=== PATIENT | female | born 1990 | race American Indian/Alaskan Native ===

== ENCOUNTER 2019-01-19 06:07 | Emergency (ER) | payer MEDICAID ==
[2019-01-19] MEDS ORDERED: ZOFRAN ONE (06:38)
[2019-01-19] MEDS ORDERED: ZOFRAN IV ONE (06:41)
[2019-01-19 06:51] LABS: Basophils % (Auto) 0.4 % (0.0-1.8); Eosinophils # (Auto) 0.1 K/mm3 (0.0-0.4); Eosinophils % (Auto) 0.9 % (0.0-4.3); Hematocrit 37.9 % (30.3-42.9); Hemoglobin 13.2 gm/dl (10.1-14.3); Lymphocytes # (Auto) 1.6 K/mm3 (1.2-5.4); Lymphocytes % (Auto) 22.6 % (13.4-35.0); Mean Corpuscular HGB Conc 35 % (30-34); Mean Corpuscular Volume 90 fl (79-97); Monocytes # (Auto) 0.5 K/mm3 (0.0-0.8); Monocytes % (Auto) 7.8 % (0.0-7.3); Platelet Count 273 K/mm3 (140-440); Red Blood Count 4.19 M/mm3 (3.65-5.03); Red Cell Distribution Width 13.6 % (13.2-15.2)
[2019-01-19 07:12] LABS: Alanine Aminotransferase 18 units/L (7-56); Albumin 4.7 g/dL (3.9-5); BUN/Creatinine Ratio 12; Blood Urea Nitrogen 11 mg/dL (7-17); Calcium 9.8 mg/dL (8.4-10.2); Hemolysis Index 7
[2019-01-19] MEDS ORDERED: NACL 0.9% 1000 ML 1,000 ML IV ONE (07:28)
[2019-01-19] MEDS ORDERED: K-DUR PO ONE (07:29)
--- NOTE | 2019-01-19 07:31 | Emergency Department Report ---
ED General Adult HPI - General Chief complaint: Nausea/Vomiting/Diarrhea Stated complaint: VOMITTING Time Seen by Provider: 01/19/19 07:08 Source: patient Mode of arrival: Ambulatory Limitations: No Limitations - History of Present Illness Initial comments: 28 YO HIV POS PT WITH N/V/D FOR 1 DAY. ON ANTIVIRAL. NO FEVER. NO CHILLS. NO ABD PAIN. JUST GOT HER control SHOT. Does not recall eating anything bad. Family not ill. No CVA tenderness. No vag discharge or bleeding. No back pain. pmh HIV on antivirals -: Gradual, days(s) Severity scale (0 -10): 10 Consistency: constant Improves with: none Worsens with: eating Associated Symptoms: nausea/vomiting Treatments Prior to Arrival: none - Related Data Previous Rx's Medication Instructions Recorded Last Taken Type Ondansetron [Zofran Odt] 4 mg PO Q8HR PRN #10 tab.rapdis 01/19/19 Unknown Rx Potassium Chloride [K-Dur] 20 meq PO BID #4 tab 01/19/19 Unknown Rx Allergies Allergy/AdvReac Type Severity Reaction Status Date / Time No Known Allergies Allergy Verified 01/19/19 06:37 ED Review of Systems ROS: Stated complaint: VOMITTING Other details as noted in HPI Comment: All other systems reviewed and negative Constitutional: denies: chills, fever Eyes: denies: eye pain ENT: denies: throat pain Respiratory: denies: cough Cardiovascular: denies: palpitations Endocrine: denies: flushing Gastrointestinal: as per HPI, abdominal pain, nausea, vomiting, diarrhea Genitourinary: denies: urgency Musculoskeletal: denies: back pain Skin: denies: rash Neurological: weakness. denies: headache Psychiatric: denies: depression Hematological/Lymphatic: denies: easy bleeding ED Past Medical Hx - Past Medical History Previous Medical History?: Yes Hx HIV: Yes - Surgical History Past Surgical History?: No - Family History Family history: no significant - Social History Smoking Status: Current Every Day Smoker - Medications Home Medications: Home Medications Medication Instructions Recorded Confirmed Last Taken Type Ondansetron [Zofran Odt] 4 mg PO Q8HR PRN #10 tab.rapdis 01/19/19 Unknown Rx Potassium Chloride [K-Dur] 20 meq PO BID #4 tab 01/19/19 Unknown Rx ED Physical Exam - General Limitations: No Limitations General appearance: alert, in no apparent distress - Head Head exam: Present: atraumatic, normocephalic - Eye Eye exam: Present: normal appearance, PERRL, EOMI - ENT ENT exam: Present: mucous membranes dry - Neck Neck exam: Present: normal inspection - Respiratory Respiratory exam: Present: normal lung sounds bilaterally - Cardiovascular Cardiovascular Exam: Present: regular rate, tachycardia - GI/Abdominal GI/Abdominal exam: Present: soft, normal bowel sounds. Absent: distended, te nderness, guarding, rebound, rigid, diminished bowel sounds, hyperactive bowel sounds, hypoactive bowel sounds, organomegaly, mass, bruit, pulsatile mass, hernia - Rectal Rectal exam: Present: deferred - Extremities Exam Extremities exam: Present: normal inspection, full ROM - Back Exam Back exam: Present: normal inspection, full ROM. Absent: tenderness, CVA tenderness (R), CVA tenderness (L) - Neurological Exam Neurological exam: Present: alert, oriented X3, CN II-XII intact, normal gait, reflexes normal - Psychiatric Psychiatric exam: Present: normal affect, normal mood - Skin Skin exam: Present: warm, dry, normal color ED Course Vital Signs 01/19/19 01/19/19 01/19/19 06:08 09:15 10:00 Temperature 97.6 F Pulse Rate 114 H 90 Respiratory 20 15 15 Rate Blood Pressure 118/67 Blood Pressure 130/78 [Left] O2 Sat by Pulse 98 96 Oximetry - Reevaluation(s) Reevaluation #1: 01/19/19 09:36 feeling better on reexam taking po HR 90 Reevaluation #2: 01/19/19 09:46 TAKING PO AMBULATORY WILL DC HOME WITH FAMILY AND PCP FOLLOW UP HR 90, RR 18 ED Medical Decision Making - Lab Data Result diagrams: 01/19/19 06:40 01/19/19 06:40 - Medical Decision Making Lab Results 01/19/19 01/19/19 01/19/19 Range/Units 06:40 06:40 06:40 WBC 7.0 (4.5-11.0) K/mm3 RBC 4.19 (3.65-5.03) M/mm3 Hgb 13.2 (10.1-14.3) gm/dl Hct 37.9 (30.3-42.9) % MCV 90 (79-97) fl MCH 32 (28-32) pg MCHC 35 H (30-34) % RDW 13.6 (13.2-15.2) % Plt Count 273 (140-440) K/mm3 Lymph % (Auto) 22.6 (13.4-35.0) % [place] % (Auto) 7.8 H (0.0-7.3) % Eos % (Auto) 0.9 (0.0-4.3) % Baso % (Auto) 0.4 (0.0-1.8) % Lymph # 1.6 (1.2-5.4) K/mm3 [place] # 0.5 (0.0-0.8) K/mm3 Eos # 0.1 (0.0-0.4) K/mm3 Baso # 0.0 (0.0-0.1) K/mm3 Seg Neutrophils % 68.3 (40.0-70.0) % Seg Neutrophils # 4.8 (1.8-7.7) K/mm3 Sodium 138 (137-145) mmol/L Potassium 3.3 L (3.6-5.0) mmol/L Chloride 101.4 (98-107) mmol/L Carbon Dioxide 18 L (22-30) mmol/L Anion Gap 22 mmol/L BUN 11 (7-17) mg/dL Creatinine 0.9 (0.7-1.2) mg/dL Estimated GFR > 60 ml/min BUN/Creatinine Ratio 12 % Glucose 186 H (65-100) mg/dL Calcium 9.8 (8.4-10.2) mg/dL Total Bilirubin 0.60 (0.1-1.2) mg/dL AST 20 (5-40) units/L ALT 18 (7-56) units/L Alkaline Phosphatase 57 (35-129) units/L Total Protein 8.0 (6.3-8.2) g/dL Albumin 4.7 (3.9-5) g/dL Albumin/Globulin Ratio 1.4 % HCG, Qual Negative (Negative) labs noted NS 1 L and IV zofran with relief No diarrhea here in ER 0845 reassessment will give PO challenge and assess for discharge home. 0945 ON DC TAKING PO AMBULATORY IN ER HR HAS DECREASED PT REPORTS FELLING BETTER NO VOMITING OR DIARRHEA WHILE IN ER DC HOME WITH DC PLAN OF CARE, DC WITH FAMILY AND WITH PCP FOLLOW UP IN AM. Critical care attestation.: If time is entered above; I have spent that time in minutes in the direct care of this critically ill patient, excluding procedure time. ED Disposition Clinical Impression: HIV (human immunodeficiency virus infection), Hypokalemia, Vomiting and diarrhea Disposition: DC-01 TO HOME OR SELFCARE Is pt being admited?: No Does the pt Need Aspirin: No Condition: Stable Instructions: Acute Nausea and Vomiting (ED), Acute Diarrhea (ED) Additional Instructions: DIET BLAND AND PROGRESS TOLERATED HYDRATE WELL WITH WATER MED ORDERED TODAY REST EAT FOODS HIGH IN POTASSIUM- BANANA AND ORANGES FOLLOW UP WITH PCP IN AM TO BE SURE YOU ARE IMPROVING MOTRIN OR TYLENOL FOR FEVER OF PAIN CONTINUE YOUR HOME MEDICATIONS Prescriptions: Potassium Chloride [K-Dur] 20 meq PO BID #4 tab Ondansetron [Zofran Odt] 4 mg PO Q8HR PRN #10 tab.rapdis PRN Reason: Vomiting Referrals: CECIL HUSSEIN MD [Primary Care Provider] - 3-5 Days Time of Disposition: 07:46
[2019-01-19] MEDS ORDERED: TYLENOL PO ONE (07:59)
[2019-01-19 10:07] VITALS: BP 130/78
== END 2019-01-19 10:07 | disposition home or self-care (01) ==
LOC: ED 06:07
DX: E87.6 Hypokalemia (principal); F17.200 Nicotine dependence, unspecified, uncomplicated
CPT/HCPCS: 36415; 80053; 84703; 85025; 96361; 96374; 99283; J2405; J7030

== ENCOUNTER 2019-02-11 10:01 | Emergency (ER) | payer MEDICAID ==
[2019-02-11 10:15] VITALS: BP 131/66
--- NOTE | 2019-02-11 10:58 | Emergency Department Report ---
Chief Complaint: Urogenital-Female Stated Complaint: CATHETER IS STUCK Time Seen by Provider: 02/11/19 10:40 - HPI History of Present Illness: Ms. Velasco is a 28 yo female who has had recurring Bartholin cyst abscess for [address] Collier [employer] at [facility] placed Word catheter in OR. She comes to ER to have the balloon taken out after cutting the catheter. On my brief external exam, balloon in place with purulent drainage. I explained that keeping the Word catheter in place would be the best course of action. She insisted that Dr. Collier's office instructed her to come to the ER to have the balloon removed. She became angry during the conversation, rudely making phone calls in obvious attempt the end the interaction. She eloped without further treatment. - Exam Vital Signs: Vital Signs 02/11/19 02/11/19 10:13 10:23 Temperature 98.6 F Pulse Rate 77 Respiratory 16 16 Rate Blood Pressure 131/66 O2 Sat by Pulse 100 Oximetry MSE screening note: Focused history and physical exam performed. Due to findings the following was ordered: ED Disposition for MSE Clinical Impression: Bartholin's gland abscess Disposition: Z-07 ELOPED Condition: Stable
== END 2019-02-11 11:10 | disposition left against medical advice (07) ==
LOC: ED 10:01
DX: N75.1 Abscess of Bartholin's gland (principal)
CPT/HCPCS: 99281

== ENCOUNTER 2019-06-06 18:39 | Emergency (ER) | payer MEDICAID | END 2019-06-06 18:54 | disposition left against medical advice (07) | LOC: ED 18:39 | DX: R11.0 Nausea (principal); Z53.21 Procedure and treatment not carried out due to patient leaving prior to being seen by health care provider ==